=== PATIENT | female | born 1955 | race Caucasian/White ===

== ENCOUNTER → 2023-09-17 11:57 | Outpatient (CLI) | payer MEDICARE, OTHER, SELFPAY ==
[2023-09-18 14:53] LABS: Candida species Negative (Negative); Gardnerella vaginalis Negative (Negative); Trichomoas vaginalis Negative (Negative)
== END ==
PROVIDERS: Family Provider Chiropractor; PCP Family Medicine; Visit Provider Physician Assistant Medical
DX: N89.8 Other specified noninflammatory disorders of vagina (principal)
CPT/HCPCS: 87480; 87510; 87660

== ENCOUNTER → 2023-09-24 | Outpatient (CLI) | payer MEDICARE, OTHER, SELFPAY ==
--- NOTE | 2023-09-24 09:00 | DI.US.S_ITS ---
PROCEDURE: US PELVIC COMPLETE INDICATIONS: pelvic pain and bloating TECHNIQUE: Real-time scanning was performed of the pelvic organs, with image documentation. Additional endovaginal scanning was necessary due to incomplete visualization of the adnexal and endometrial structures by transabdominal scanning. COMPARISON: None. FINDINGS: Uterus: Uterus is anteverted and normal in size at 6.6 x 3.6 x 4.6 cm. The myometrium is heterogeneous. The endometrium measures 5 mm combined thickness. No uterine fibroids. Ovaries: The ovaries are not seen. No adnexal masses are identified. Other: No pathologic free abdominal or pelvic fluid. IMPRESSION: 1. The uterus and endometrium are normal in appearance. 2. The ovaries are not visualized secondary to bowel gas. We strive to produce accurate, complete, and clear reports of imaging services. To assist us in improving patient care, this report was composed using standard report templates and voice recognition software. Therefore, it may contain abnormal punctuation, insertions and/or omissions. Occasional wrong-word or sound-alike substitutions may occur. Though we review the report and make efforts to correct it, we do recommend that the report be read carefully in proper context to recognize any text inaccuracies. Dictated by: Joshua Scrhader M.D. on 09/24/2023 at 10:04 Approved by: Joshua Schrader M.D. on 09/24/2023 at 10:07
== END ==
PROVIDERS: Family Provider Chiropractor; PCP Family Medicine; Referring Provider Physician Assistant Medical; Visit Provider Physician Assistant Medical
DX: R14.0 Abdominal distension (gaseous) (principal); R10.2 Pelvic and perineal pain
CPT/HCPCS: 76856

== ENCOUNTER → 2025-07-24 | Outpatient (CLI) | payer MEDICARE, OTHER, SELFPAY ==
--- NOTE | 2025-07-24 10:41 | DI.MG.S_ITS ---
MM screening mammo BI: 07/24/2025. BI-RADS: 1
== END ==
LOC: MAMMO 10:34
PROVIDERS: Family Provider Chiropractor; PCP Family Medicine; Referring Provider Family Medicine; Visit Provider Family Medicine
DX: Z12.31 Encounter for screening mammogram for malignant neoplasm of breast (principal)
CPT/HCPCS: 77063; 77067

== ENCOUNTER → 2025-07-27 08:52 | Outpatient (CLI) | payer MEDICARE, OTHER, SELFPAY ==
--- NOTE | 2025-07-27 08:54 | DI.RAD.S_ITS ---
PROCEDURE: XR DEXA AXIAL W/VFA INDICATIONS: dysfunction of sphincter/postmenopausal osteoporos COMPARISON: None. FINDINGS: Lumbar Spine: Bone mineral density 0.979 g/cm2, T score -0.6. Left Femoral Neck: Bone mineral density 0.591 g/cm2, T score -2.3. Left Hip: Bone mineral density 0.712 g/cm2, T score -1.9. Fracture Risk Calculation (when applicable): 10-year fracture risk of a major osteoporotic fracture 26 percent and of a hip fracture 7.3 percent. (T score greater or equal to -1.0 to: NORMAL) (T score from -1.1 to -2.4: OSTEOPENIA) (T score less than or equal to -2.5: OSTEOPOROSIS) IMPRESSION: Low bone mineral density (osteopenia) by WHO classification. Follow-up guidelines as follows: Osteoporosis: Consider a repeat DEXA and Vertebral Fracture Assessment (VFA) exam in 2 years or sooner if medically necessary, to reassess this patient's status. Osteopenia: Consider a repeat DEXA in 2-3 years to reassess this patient's status, or if there is a new clinical indication. Normal: Consider a repeat DEXA in 5 years or sooner, or if there is a new clinical indication. All treatment decisions require clinical judgment and consideration of individual patient factors, including patient preferences, comorbidities, previous drug use, risk factors not captured in the FRAX model (e.g., frailty, falls, vitamin D deficiency, increased bone turnover, interval significant decline in bone density ) and possible under- or over-estimation of fracture risk by FRAX. In addition, the NOF Guide recommends that FDA-approved medical therapies be considered in postmenopausal women and men age >= 50 years with a: * Hip or vertebral (clinical or morphometric) fracture * T-score of <=-2.5 at the spine or hip * Ten-year fracture probability by FRAX of >= 3% for hip fracture or >=20% for major osteoporotic fracture. Dictated by: Joshua Schrader M.D. on 07/27/2025 at 14:17 Approved by: Joshua Schrader M.D. on 07/27/2025 at 14:27
--- NOTE | 2025-07-27 08:55 | DI.US.S_ITS ---
PROCEDURE: US ABDOMEN LIMITED INDICATIONS: DYSFUNCTION OF SPINCHTER OF ODDI TECHNIQUE: Real-time scanning was performed of the abdominal and retroperitoneal organs, with image documentation. COMPARISON: None. FINDINGS: Liver: Liver is normal in size and mildly increased in echogenicity. Multiple hepatic cysts, largest measuring 1.4 cm in the left hepatic lobe with septations. Additional lesion measuring 1 cm which does not appear cystic and demonstrates echogenic foci, possible calcifications. Gallbladder: Surgically absent. Biliary ducts: Intrahepatic bile ducts are non-dilated. Extrahepatic bile duct caliber measures 7 mm. Normal is 6-7 mm or less in diameter, or 10 mm or less post-cholecystectomy. Pancreas: Visualized portions of the pancreas are sonographically normal. Tail is not well seen. Miscellaneous: No free abdominal fluid. IMPRESSION: 1. Liver is mildly increased in echogenicity, most consistent with hepatic steatosis. 2. Hepatic cysts, largest measuring 1.4 cm with thin septations. Additional indeterminate lesion measuring 1 cm within the right hepatic lobe. Recommend follow-up ultrasound in 6 months to assess stability. Dictated by: Joshua Schrader M.D. on 07/27/2025 at 10:36 Approved by: Joshua Schrader M.D. on 07/27/2025 at 10:39
== END ==
LOC: US 08:54
PROVIDERS: Family Provider Chiropractor; PCP Family Medicine; Referring Provider Family Medicine; Visit Provider Family Medicine
DX: K83.8 Other specified diseases of biliary tract (principal); K76.89 Other specified diseases of liver; M81.0 Age-related osteoporosis without current pathological fracture; Z90.49 Acquired absence of other specified parts of digestive tract
CPT/HCPCS: 76705; 77085